=== PATIENT | male | born 1985 | race Two or more races ===

== ENCOUNTER 2018-03-13 23:35 | Emergency (ER) | payer MEDICAID ==
[~2018-03-13] VITALS: Ht 165.1 cm; Wt 72.6 kg
[2018-03-14 05:57] VITALS: BP 138/74
== END 2018-03-14 05:35 | disposition home or self-care (01) ==
LOC: ER 23:35
DX: S89.92XA Unspecified injury of left lower leg, initial encounter (principal); M25.462 Effusion, left knee; V19.9XXA Pedal cyclist (driver) (passenger) injured in unspecified traffic accident, initial encounter; Y93.89 Activity, other specified; Y92.89 Other specified places as the place of occurrence of the external cause; Y99.8 Other external cause status
CPT/HCPCS: 73562

== ENCOUNTER 2018-11-27 | Emergency (ER) | payer MEDICAID ==
[~2018-11-27] VITALS: Ht 165.1 cm; Wt 68.0 kg
[2018-11-27 02:57] VITALS: BP 118/77
[2018-11-27] MEDS ORDERED: BACLOFEN 10 MG TAB PO ONE (03:00)
[2018-11-27] MEDS ORDERED: HYDROcodone-ACET 5/325MG TAB PO ONE (03:00)
== END 2018-11-27 03:39 | disposition home or self-care (01) ==
LOC: ER 00:03
DX: S20.211A Contusion of right front wall of thorax, initial encounter (principal); W22.8XXA Striking against or struck by other objects, initial encounter; Y93.55 Activity, bike riding; Y92.488 Other paved roadways as the place of occurrence of the external cause; Y99.8 Other external cause status
CPT/HCPCS: 71111

== ENCOUNTER 2019-01-31 20:39 | Emergency (ER) | payer MEDICAID ==
[~2019-01-31] VITALS: Ht 182.9 cm; Wt 72.6 kg
[2019-01-31 21:25] VITALS: BP 108/53
[2019-02-01] MEDS ORDERED: TETANUS-DIPTH-ACEL PERTUSSIS 0.5ML SYRG IM ONE (00:45)
[2019-02-01] MEDS ORDERED: cefTRIAXone SOD 1,000 MG VL IM ONE (00:45)
[2019-02-01] MEDS ORDERED: IBUPROFEN 800 MG TAB PO ONE (00:45)
== END 2019-02-01 01:49 | disposition home or self-care (01) ==
LOC: ER 20:39
DX: S91.331A Puncture wound without foreign body, right foot, initial encounter (principal); W22.8XXA Striking against or struck by other objects, initial encounter; Y93.89 Activity, other specified; Y99.8 Other external cause status; Y92.820 Desert as the place of occurrence of the external cause
CPT/HCPCS: 73630; 90471; 90715; 96372; 99283; J0696

== ENCOUNTER 2019-06-09 03:44 | Emergency (ER) | payer SELFPAY ==
[~2019-06-09] VITALS: Ht 170.2 cm; Wt 68.9 kg
[2019-06-09 03:50] VITALS: BP 117/78
== END 2019-06-09 06:06 | disposition left against medical advice (07) ==
LOC: ER 03:49
DX: M25.562 Pain in left knee (principal); Z53.21 Procedure and treatment not carried out due to patient leaving prior to being seen by health care provider

== ENCOUNTER 2019-08-23 21:13 | Emergency (ER) | payer SELFPAY ==
[~2019-08-23] VITALS: Ht 167.6 cm; Wt 70.3 kg
[2019-08-23 21:36] VITALS: BP 121/70
== END 2019-08-24 | disposition left against medical advice (07) ==
LOC: ER 21:14
DX: R06.02 Shortness of breath (principal); Z53.21 Procedure and treatment not carried out due to patient leaving prior to being seen by health care provider

== ENCOUNTER 2020-03-28 00:09 | Emergency (ER) | payer SELFPAY ==
[~2020-03-28] VITALS: Ht 167.6 cm; Wt 72.6 kg
[2020-03-28 08:33] VITALS: BP 110/65
== END 2020-03-28 08:30 | disposition home or self-care (01) ==
LOC: EDBD 00:09 → ER 00:15
DX: S42.034A Nondisplaced fracture of lateral end of right clavicle, initial encounter for closed fracture (principal); S32.018A Other fracture of first lumbar vertebra, initial encounter for closed fracture; X58.XXXA Exposure to other specified factors, initial encounter; Y93.89 Activity, other specified; Y92.89 Other specified places as the place of occurrence of the external cause; Y99.8 Other external cause status
CPT/HCPCS: 70450; 71250; 72125; 73130; 73590; 74176

== ENCOUNTER 2020-03-31 03:05 | Emergency (ER) | payer SELFPAY ==
[~2020-03-31] VITALS: Ht 167.6 cm; Wt 68.0 kg
[2020-03-31 03:24] VITALS: BP 120/71
[2020-03-31] MEDS ORDERED: ONDANSETRON ODT 4 MG TAB PO ONE (04:30)
[2020-03-31] MEDS ORDERED: MORPHINE SULF INJ 2 MG/ML SYRINGE 1ML IM ONE (04:30)
== END 2020-03-31 05:18 | disposition home or self-care (01) ==
LOC: ER 03:11
DX: S32.009S Unspecified fracture of unspecified lumbar vertebra, sequela (principal); S42.034S Nondisplaced fracture of lateral end of right clavicle, sequela; S20.211S Contusion of right front wall of thorax, sequela; X58.XXXS Exposure to other specified factors, sequela
CPT/HCPCS: 73030; 96374; 99283; J2270; Q0162

== ENCOUNTER 2020-08-16 05:12 | Emergency (ER) | payer SELFPAY ==
[~2020-08-16] VITALS: Ht 165.1 cm; Wt 72.6 kg
[2020-08-16 05:13] VITALS: BP 106/69
== END 2020-08-16 06:00 | disposition left against medical advice (07) ==
LOC: ER 05:12
DX: R11.0 Nausea (principal); Z53.21 Procedure and treatment not carried out due to patient leaving prior to being seen by health care provider

== ENCOUNTER 2020-09-11 02:03 | Emergency (ER) | payer SELFPAY ==
[~2020-09-11] VITALS: Ht 167.6 cm; Wt 72.6 kg
[2020-09-11 02:08] VITALS: BP 114/66
== END 2020-09-11 04:20 | disposition left against medical advice (07) ==
LOC: ER 02:08
DX: R51.9 Headache, unspecified (principal); M54.2 Cervicalgia; Z53.21 Procedure and treatment not carried out due to patient leaving prior to being seen by health care provider
CPT/HCPCS: 70450; 72040

== ENCOUNTER 2020-11-15 21:28 | Emergency (ER) | payer MEDICAID ==
[~2020-11-15] VITALS: Ht 167.6 cm; Wt 68.0 kg
[2020-11-16] MEDS ORDERED: ONDANSETRON HCL 4 MG/2 ML VIAL IV ONE ×2 (01:00→03:00)
[2020-11-16] MEDS ORDERED: SODIUM CHLORIDE 0.9% 1,000 ML IV ONE (01:00)
[2020-11-16] MEDS ORDERED: MORPHINE SULFATE 4 MG/ML SYR/VIAL IV ONE ×2 (01:00→03:00)
[2020-11-16 01:20] LABS: Basophils # (auto) 0 10 ^3/uL (0-0.2); Basophils % (auto) 0.4 % (0.0-2.0); Eosinophils # (auto) 0.2 10 ^3/uL (0-0.8); Eosinophils % (auto) 1.5 % (0.0-7.0); Hematocrit 38.3 % (41.0-53.0); Hemoglobin 12.6 g/dL (13.5-17.5); Lymphocytes # (auto) 1.1 10 ^3/uL (0.4-5.4); Lymphocytes % (auto) 8.7 % (10.0-50.0); Mean Corpuscular Hemoglobin 27.9 pg (28.0-32.0); Mean Corpuscular Hgb Conc. 32.8 g/dL (32.0-36.0); Mean Corpuscular Volume 85.2 fL (80.0-100.0); Monocytes # (auto) 0.6 10 ^3/uL (0-1.3); Monocytes % (auto) 4.4 % (0.0-12.0); Neutrophils # (auto) 10.8 10 ^3/uL (1.6-8.6); Nucleated Red Blood Cells % 0.1 %; Red Cell Distribution Width 13.8 % (11.8-14.3); White Blood Cell 12.7 10^3/uL (4.4-10.8)
[2020-11-16 01:38] LABS: Albumin 3.5 g/dL (3.4-5.0); BUN/Creatinine Ratio 23.6; Calcium 8.4 mg/dL (8.5-10.1); Potassium 3.5 mmol/L (3.5-5.1)
[2020-11-16 01:47] LABS: Bilirubin, Total 0.2 mg/dL (0.2-1.0); Total Protein 6.9 g/dL (6.4-8.2)
[2020-11-16 07:45] VITALS: BP 108/70
== END 2020-11-16 08:13 | disposition home or self-care (01) ==
LOC: ER 21:28
DX: S02.85XA Fracture of orbit, unspecified, initial encounter for closed fracture (principal); S02.40DA Maxillary fracture, left side, initial encounter for closed fracture; R51.9 Headache, unspecified; Z20.822 Contact with and (suspected) exposure to COVID-19; Y04.8XXA Assault by other bodily force, initial encounter; Y93.89 Activity, other specified; Y92.89 Other specified places as the place of occurrence of the external cause; Y99.8 Other external cause status
CPT/HCPCS: 36415; 70450; 70486; 72125; 80053; 80320; 85025; 86850; 86900; 86901; 87426; 96361; 96374; 96375; 96376; 99285; J2270; J2405

== ENCOUNTER 2020-12-02 03:19 | Emergency (ER) | payer MEDICAID ==
[~2020-12-02] VITALS: Ht 165.1 cm; Wt 68.0 kg
[2020-12-02 04:47] VITALS: BP 126/76
[2020-12-02] MEDS ORDERED: KETOROLAC TROMETH 60MG/2ML VIAL IM ONE (05:00)
== END 2020-12-02 04:28 | disposition home or self-care (01) ==
LOC: ER 03:19
DX: S02.40DD Maxillary fracture, left side, subsequent encounter for fracture with routine healing (principal); X58.XXXD Exposure to other specified factors, subsequent encounter
CPT/HCPCS: 96372; 99283; J1885

== ENCOUNTER 2021-02-17 03:54 | Emergency (ER) | payer MEDICAID, OTHER ==
[2021-02-17 04:34] VITALS: BP 129/73
== END 2021-02-17 04:48 | disposition home or self-care (01) ==
LOC: ER 03:54
DX: R19.7 Diarrhea, unspecified (principal)

== ENCOUNTER 2021-04-21 22:00 | Emergency (ER) | payer OTHER ==
[~2021-04-21] VITALS: Ht 167.6 cm; Wt 68.0 kg
[2021-04-21] MEDS ORDERED: ONDANSETRON ODT 4 MG TAB PO ONE (23:00)
[2021-04-21] MEDS ORDERED: PANTOPRAZOLE 40 MG TAB PO ONE (23:00)
[2021-04-22] MEDS ORDERED: diphenhdrAMINE HCL 25 MG CAP PO ONE (01:30)
[2021-04-22 03:11] VITALS: BP 105/65
== END 2021-04-22 04:59 | disposition left against medical advice (07) ==
LOC: ER 22:01
DX: K21.9 Gastro-esophageal reflux disease without esophagitis (principal); Z20.822 Contact with and (suspected) exposure to COVID-19
CPT/HCPCS: 36415; 87426; 99284; Q0162

== ENCOUNTER 2021-04-27 20:08 | Emergency (ER) | payer OTHER ==
[~2021-04-27] VITALS: Ht 165.1 cm; Wt 69.9 kg
[2021-04-27 20:12] VITALS: BP 127/73
== END 2021-04-28 03:44 | disposition left against medical advice (07) ==
LOC: ER 20:08
DX: R05.9 Cough, unspecified (principal); Z53.21 Procedure and treatment not carried out due to patient leaving prior to being seen by health care provider
CPT/HCPCS: 71045

== ENCOUNTER 2021-06-01 18:39 | Emergency (ER) | payer OTHER ==
[~2021-06-01] VITALS: Ht 165.1 cm; Wt 70.3 kg
[2021-06-01] MEDS ORDERED: KETOROLAC TROMETH 30 MG/ML 1ML VIAL IM ONE (19:45)
[2021-06-01] MEDS ORDERED: ACETAMINOPHEN 500 MG TAB PO ONE (19:45)
[2021-06-01 19:57] VITALS: BP 130/78
== END 2021-06-01 21:05 | disposition home or self-care (01) ==
LOC: ER 18:39
DX: M25.561 Pain in right knee (principal)
CPT/HCPCS: 96372; 99283; J1885

== ENCOUNTER 2021-07-05 03:08 | Emergency (ER) | payer OTHER ==
[~2021-07-05] VITALS: Ht 167.6 cm; Wt 68.5 kg
[2021-07-05] MEDS ORDERED: AMOXICILLIN/CLAVUL 875 MG TAB PO ONE (04:30)
[2021-07-05 04:41] VITALS: BP 114/69
[2021-07-05] MEDS ORDERED: AZIT250T9 PO (04:53)
[2021-07-05] MEDS ORDERED: AZITHROMYCIN 250 MG TAB PO ONE (05:00)
== END 2021-07-05 05:05 | disposition home or self-care (01) ==
LOC: ER 03:08
DX: J01.90 Acute sinusitis, unspecified (principal)

== ENCOUNTER 2021-11-20 20:33 | Emergency (ER) | payer OTHER ==
[~2021-11-20] VITALS: Ht 167.6 cm; Wt 68.0 kg
[~2021-11-20 20:33] MED LIST: AZIT250T9 PO
[2021-11-20 20:49] VITALS: BP 107/66
== END 2021-11-20 23:33 | disposition home or self-care (01) ==
LOC: ER 20:33
DX: M25.512 Pain in left shoulder (principal); F17.210 Nicotine dependence, cigarettes, uncomplicated; Z90.89 Acquired absence of other organs; Z79.2 Long term (current) use of antibiotics
CPT/HCPCS: 73030

== ENCOUNTER → 2022-09-01 03:38 | Emergency (ER) | payer OTHER | END | disposition left against medical advice (07) | LOC: ER 03:38 | DX: R10.9 Unspecified abdominal pain (principal); Z53.21 Procedure and treatment not carried out due to patient leaving prior to being seen by health care provider ==

== ENCOUNTER 2022-10-05 21:11 | Emergency (ER) | payer OTHER ==
[~2022-10-05] VITALS: Ht 167.6 cm; Wt 67.2 kg
[~2022-10-05 21:11] MED LIST changes: +AZIT-43 PO; -AZIT250T9 PO
[2022-10-05 23:14] VITALS: BP 104/61
[2022-10-06] MEDS ORDERED: IBUPROFEN 800 MG TAB PO ONE
== END 2022-10-06 00:25 | disposition home or self-care (01) ==
LOC: ER 21:11
DX: S22.42XA Multiple fractures of ribs, left side, initial encounter for closed fracture (principal); Y04.2XXA Assault by strike against or bumped into by another person, initial encounter; Y93.89 Activity, other specified; Y92.89 Other specified places as the place of occurrence of the external cause; Y99.8 Other external cause status
CPT/HCPCS: 71101

== ENCOUNTER 2024-04-26 04:58 | Emergency (ER) | payer MEDICAID, OTHER ==
[~2024-04-26] VITALS: Ht 165.1 cm; Wt 67.1 kg
--- NOTE | 2024-04-26 05:18 | ED.PDOC ---
History of Present Illness HPI Comments 38-year-old male presents with a chief complaint of pain to his inguinal hernia x 1 hour. Patient states that he was already aware that he had a right inguinal hernia, but states that roughly an hour ago he feels like he strained it and the pain increased. Patient has protruding inguinal hernia on the right side. Patient reports that it is painful to walk. Time Seen by MD: 05:12 Primary Care Provider: UNKNOWN Reviewed Notes: Medications, Allergies Allergies: Coded Allergies: NO KNOWN ALLERGIES (Unverified , 11/27/18) Home Meds Active Scripts Azithromycin (Azithromycin) 250 Mg Tab, 250 MG PO DAILY, #4 TAB Prov:BRYAN ALVARADO MD 07/05/21 Information Source: Patient Mode of Arrival: Ambulatory Severity: Moderate Timing: Hours Duration: Since onset Prehospital treatment: None Past Medical History PAST MEDICAL HISTORY: Denies Surgical History: Tonsillectomy Family History Family History: Reviewed,noncontributory to illness Social History Smoker: Cigarettes Alcohol: Occasionally Drugs: Other Lives In: Home Constitutional: denies: chills, diaphoresis, fatigue, fever, malaise, sweats, weakness, others EENTM: denies: blurred vision, double vision, ear bleeding, ear discharge, ear drainage, ear pain, ear ringing, eye pain, eye redness, hearing loss, mouth pain, mouth swelling, nasal discharge, nose bleeding, nose congestion, nose pain, photophobia, tearing, throat pain, throat swelling, voice changes, others Respiratory: denies: cough, hemoptysis, orthopnea, SOB at rest, shortness of breath, SOB with excertion, stridor, wheezing, others Cardiovascular: denies: chest pain, dizzy spells, diaphoresis, Dyspnea on exertion, edema, irregular heart beat, left arm pain, lightheadedness, palpit ations, PND, syncope, others Gastrointestinal: denies: abdomen distended, abdominal pain, blood streaked b owels, constipated, diarrhea, dysphagia, difficulty swallowing, hematemesis, melena, nausea, poor appetite, poor fluid intake, rectal bleeding, rectal pain, vomiting, others Genitourinary: reports: others (INGUINAL HERNIA PAIN); denies: burning, dysuria, flank pain, frequency, hematuria, incontinence, penile discharge, penile sore, pain, testicle pain, testicle swelling, urgency Neurological: denies: dizziness, fainting, headache, left sided numbness, left sided weakness, numbness, paresthesia, pre-existing deficit, right sided numbness, right sided weakness, seizure, speech problems, tingling, tremors, weakness, others Musculoskeletal: denies: back pain, gout, joint pain, joint swelling, muscle pain, muscle stiffness, neck pain, others Integumetry: denies: bruises, change in color, change in hair/nails, dryness, laceration, lesions, lumps, rash, wounds, others Allergic/Immunocompromised: denies: Difficulty Healing, Frequent Infections, Hives, Itching, others Hematologic/Lymphatic: denies: anemia, blood clots, easy bleeding, easy bruising, swollen glands, others Endocrine: denies: excessive hunger, excessive sweating, excessive thirst, excessive urination, flushing, intolerance to cold, intolerance to heat, unexpl ained weight gain, unexplained weight loss, others Psychiatric: denies: anxiety, bipolar disorder, depression, hopeless, panic disorder, schizophrenia, sleepless, suicidal, others All Other Systems: Reviewed and Negative Physical Exam General Appearance: No Apparent Distress, Normal HEENT: Normal ENT Inspection, Pharynx Normal, TMs Normal Neck: Full Range of Motion, Non-Tender, Normal, Normal Inspection Respiratory: Chest Non-Tender, Lungs Clear, No Accessory Muscle Use, No Respiratory Distress, Normal Breath Sounds Cardiovascular: No Edema, No JVD, No Murmur, No Gallop, Normal Peripheral Pulses, Regular Rate/Rhythm Breast Exam: Deferred Gastrointestinal: No Organomegaly, Non Tender, No Pulsatile Mass, Normal Bowel Sounds, Soft Genitalia: Deferred Pelvic: Deferred Rectal: Deferred Extremities: No calf tenderness, Normal capillary refill, Normal inspection, Normal range of motion, Non-tender, No pedal edema Musculoskeletal : Apperance: Normal Neurologic: Alert, compensation coordinator II-XII nml as Tested, No Motor Deficits, Normal Affect, Normal Mood, No Sensory Deficits Cerebellar Function: Normal Reflexes: Normal Skin: Dry, Normal Color, Warm Lymphatic: No Adenopathy Was a procedure done? Was a procedure done?: No Differential Dx Considerations may include: Incarcerated inguinal hernia, inguinal hernia pain X-Ray, Labs, Meds, VS Vital Signs Date Time Temp Pulse Resp B/P (MAP) Pulse Ox O2 Delivery O2 Flow Rate FiO2 04/26/24 05:10 97.6 81 16 118/73 (88) 97 Time of 1ST Reevaluation: 05:42 Reevaluation 1ST: Unchanged Patient Education/Counseling: Diagnosis, Treatment, Prognosis Family Education/Counseling: No Family Present Departure 1 Departure Time of Disposition: 06:27 (Patient's hernia is not incarcerated. Patient has inflamed fat in the hernia. We will discharge patient with outpatient surgical follow up) Impression: Primary Impression: Inguinal hernia Qualified Codes: K40.91 - Unilateral inguinal hernia, without obstruction or gangrene, recurrent Disposition: 01 HOME / SELF CARE / HOMELESS Condition: Stable Referrals: CARRIE PAULINO MD Additional Instructions: You have a hernia with inflamed fat in it. This can be painful but is not dangerous. You need to follow up with a general surgeon to discuss treatment options. You were referred to a general surgeon. Please call for an appointment. For pain you can take the followinam: Ibuprofen 400mg with food Noon: Acetaminophen 1000mg 4pm: Ibuprofen 400mg with food 8pm: Acetaminophen 1000mg You should follow up with your regular doctor within one week to ensure you are doing better. If your symptoms worsen or you have any other concerns then please return to the ER. Discharged With: Self Critical Care Note Critical Care Time?: No Stability Stability form required: No I personally scribed for DIANE ARRIAGA MD ([email or web address]) on 04/26/24 at 05:18. Electronically submitted by Manjeet Inman ([email or web address]). DIANE ARRIAGA MD Apr 26, 2024 05:18
--- NOTE | 2024-04-26 06:18 | DVH ---
Exam: CT CT AB PEL WITH IV CON ONLY History: rlq pain concerning for incarcerated hernia Comparison Study: None available at time of dictation. Technique: Multidetector spiral CT of the abdomen was performed from lung bases to pubic symphysis. Axial imaging was performed with intravenous contrast following the uneventful administration of 100 ml Omnipaque 300. Coronal and sagittal multiplanar reformats were obtained from the axial data set b y the technologist. Radiation Dose : 1. Abdomen/Pelvis: CTDIvol 6.61 mGy, DLP 325.14 mGy*cm. Findings: Lung Bases: Lung bases are clear. Visualized portions of the heart and pericardium are unremarkable. Liver: The liver is normal in size. No focal lesions. Gallbladder and Biliary Tree: The gallbladder is unremarkable No intrahepatic or extrahepatic bilia ry ductal dilatation. Spleen: Unremarkable Pancreas: The pancreas enhances normally and there are no focal lesions. The main pancreatic duct i s not dilated Adrenal Glands: Unremarkable Kidneys: Kidneys enhance symmetrically. No calculi or hydronephrosis. GI tract: The stomach is grossly normal in appearance.. No evidence of small bowel wall thickening or abnormal dilatation to suggest bowel obstruction. The colon is unremarkable. The appendix is visuali zed and is normal. Peritoneum/mesentery/retroperitoneum. No evidence of free intraperitoneal air. No ascites. No evidenc e of suspicious lymphadenopathy. Abdominal Wall: Unremarkable. Vasculature: Abdominal aorta and main branches are unremarkable. Normal vascular enhancement. Urinary Bladder: Grossly unremarkable for degree of distention. Pelvic Organs: Unremarkable Musculoskeletal: No aggressive focal bony lesions, acute fractures or dislocation. Soft tissues: Fat containing right inguinal hernia. There is infiltration of the fat. IMPRESSION: 1. Fat containing right inguinal hernia with infiltration of the fat which may reflect inflammation. 2. Otherwise no acute abnormality in the abdomen or pelvis.
[2024-04-26] MEDS: IOHEXOL 300 MG/ML 100ML BOTTLE IJ ONE (06:23)
[2024-04-26 06:51] VITALS: TEMP 97.4
[2024-04-26 06:54] VITALS: RESP 18; O2SAT 98
[2024-04-26 06:57] VITALS: BP 100/57; PULSE 84; RESP 18
[2024-04-26] MEDS: ONDANSETRON HCL 4 MG/2 ML VIAL IV ONE (06:57)
[2024-04-26] MEDS: MORPHINE SULFATE 4 MG/ML SYR/VIAL IV ONE (06:57)
[2024-04-26] MEDS: SODIUM CHLORIDE 0.9% 1,000 ML IV ONE (06:57)
== END 2024-04-26 07:28 | disposition home or self-care (01) ==
LOC: ER 04:58
DX: K40.90 Unilateral inguinal hernia, without obstruction or gangrene, not specified as recurrent (principal); F17.210 Nicotine dependence, cigarettes, uncomplicated; Z98.890 Other specified postprocedural states
CPT/HCPCS: 74177; 96374; 96375; 99285; J2270; J2405; J7030; Q9967

== ENCOUNTER 2025-05-02 17:04 | Emergency (ER) | payer MEDICAID ==
[~2025-05-02] VITALS: Ht 167.6 cm; Wt 75.8 kg
[2025-05-02 17:06] VITALS: BP 114/66; PULSE 84; RESP 18; TEMP 99.9; O2SAT 96
--- NOTE | 2025-05-02 17:36 | ED.PDOC ---
History of Present Illness HPI Comments 39 year old male presents to the ED with a chief complaint of headache onset 2 days. Patient states he has been experiencing headache, states he has "lumps" all over his head. He is also experiencing sore throat, fever, nasal congestion, cough, facial pain for the past 2 days. He has taken Tylenol with no relief of symptoms. Denies nausea, vomiting, diarrhea, dizziness, chest pain, shortness of breath, dysuria, hematuria. No other symptoms or modifying factors present at this time. Chief Complaint: Headache Time Seen by MD: 17:30 Primary Care Provider: UNKNOWN Reviewed Notes: Medications, Allergies Allergies: Coded Allergies: NO KNOWN ALLERGIES (Unverified , 11/27/18) Home Meds Active Scripts Azithromycin (Azithromycin) 250 Mg Tab, 250 MG PO DAILY, #4 TAB Prov:BRYAN ALVARADO MD 07/05/21 Information Source: Patient Mode of Arrival: Ambulatory Severity: Moderate Timing: Days Duration: Since onset Prehospital treatment: None Past Medical History PAST MEDICAL HISTORY: Denies Surgical History: Tonsillectomy Family History Family History: Reviewed,noncontributory to illness Social History Smoker: Cigarettes Alcohol: Occasionally Drugs: Other Lives In: Home Constitutional: reports: fever; denies: chills, diaphoresis, fatigue, malaise, sweats, weakness, others EENTM: reports: nasal discharge, throat pain; denies: blurred vision, double vision, ear bleeding, ear discharge, ear drainage, ear pain, ear ringing, eye pain, eye redness, hearing loss, mouth pain, mouth swelling, nose bleeding, nose congestion, nose pain, photophobia, tearing, throat swelling, voice changes, others Respiratory: reports: cough; denies: hemoptysis, orthopnea, SOB at rest, shortness of breath, SOB with excertion, stridor, wheezing, others Cardiovascular: denies: chest pain, dizzy spells, diaphoresis, Dyspnea on exertion, edema, irregular heart beat, left arm pain, lightheadedness, palpitations, PND, syncope, others Gastrointestinal: denies: abdomen distended, abdominal pain, blood streaked bowels, constipated, diarrhea, dysphagia, difficulty swallowing, hematemesis, melena, nausea, poor appetite, poor fluid intake, rectal bleeding, rectal pain, vomiting, others Genitourinary: denies: burning, dysuria, flank pain, frequency, hematuria, incontinence, penile discharge, penile sore, pain, testicle pain, testicle swelling, urgency, others Neurological: reports: headache; denies: dizziness, fainting, left sided numbness, left sided weakness, numbness, paresthesia, pre-existing deficit, right sided numbness, right sided weakness, seizure, speech problems, tingling, tremors, weakness, others Musculoskeletal: denies: back pain, gout, joint pain, joint swelling, muscle pain, muscle stiffness, neck pain, others Integumetry: denies: bruises, change in color, change in hair/nails, dryness, laceration, lesions, lumps, rash, wounds, others Allergic/Immunocompromised: denies: Difficulty Healing, Frequent Infections, Hives, Itching, others Hematologic/Lymphatic: denies: anemia, blood clots, easy bleeding, easy bruising, swollen glands, others Endocrine: denies: excessive hunger, excessive sweating, excessive thirst, excessive urination, flushing, intolerance to cold, intolerance to heat, unexplained weight gain, unexplained weight loss, others Psychiatric: denies: anxiety, bipolar disorder, depression, hopeless, panic disorder, schizophrenia, sleepless, suicidal, others All Other Systems: Reviewed and Negative Physical Exam General Appearance: No Apparent Distress, Normal HEENT: Normal ENT Inspection, Pharynx Normal, TMs Normal Neck: Full Range of Motion, Non-Tender, Normal, Normal Inspection Respiratory: Chest Non-Tender, Lungs Clear, No Accessory Muscle Use, No Respiratory Distress, Normal Breath Sounds Cardiovascular: No Edema, No JVD, No Murmur, No Gallop, Normal Peripheral Pulses, Regular Rate/Rhythm Breast Exam: Deferred Gastrointestinal: No Organomegaly, Non Tender, No Pulsatile Mass, Normal Bowel Sounds, Soft Genitalia: Deferred Pelvic: Deferred Rectal: Deferred Extremities: No calf tenderness, Normal capillary refill, Normal inspection, Normal range of motion, Non-tender, No pedal edema Musculoskeletal : Apperance: Normal Neurologic: Alert, lugger II-XII nml as Tested, No Motor Deficits, Normal Affect, Normal Mood, No Sensory Deficits Cerebellar Function: Normal Reflexes: Normal Skin: Dry, Normal Color, Warm Lymphatic: No Adenopathy Was a procedure done? Was a procedure done?: No Differential Dx Considerations may include: URI, influenza, COVID, strep throat, pharyngitis, pneumonia X-Ray, Labs, Meds, VS Vital Signs Date Time Temp Pulse Resp B/P (MAP) Pulse Ox O2 Delivery O2 Flow Rate FiO2 05/02/25 17:06 99.9 84 18 114/66 96 99.9 X-Ray, Labs, Meds, VS Comment Imaging: X-rays and CT scans were reviewed and interpreted by this provider, im aging shows no fractures and no pathological disease. Pending radiology review. Laboratory: Labs reviewed and interpreted by this provider. No significant abnormalities noted. Patient has prior medical visits reviewed. Med reconciliation performed Vital signs reviewed Time of 1ST Reevaluation: 18:00 Reevaluation 1ST: Unchanged Patient Education/Counseling: Diagnosis, Treatment, Prognosis, Need For Follow Up (Follow up with PCP next available appointment.) Family Education/Counseling: No Family Present SEPSIS Sepsis Screen Date sepsis recognized/suspect: May 02, 2025 Time Sepsis recognized/suspect: 1705 Recent Procedure: No On Antibiotic Therapy: No Respiratory Rate >20: No Heart Rate >90: No Temp<36 C (96.8 F) or >38.3 C: No SBP <90 or MAP <65 mmHG: No New Acute Mental Status Change: No Is the patient on CPAP, BIPAP,: No Vital Signs Date Time Temp Pulse Resp B/P (MAP) Pulse Ox O2 Delivery O2 Flow Rate FiO2 05/02/25 17:06 99.9 84 18 114/66 96 99.9 Departure 1 Departure Time of Disposition: 17:41 Impression: Primary Impression: Acute sinusitis Qualified Codes: J01.10 - Acute frontal sinusitis, unspecified Disposition: 01 HOME / SELF CARE / HOMELESS Condition: Stable e-Prescriptions Montelukast Sodium (Singulair) 10 Mg Tab 10 MG PO DAILY, #30 TAB Prov: CHARLES HERNANDES DRIER TENDER NAPHTHALENE 05/02/25 Ibuprofen Micronized (Ibuprofen) 800 Mg Tab 800 MG PO TID PRN, #40 TAB Prov: CHARLES HERNANDES DRIER TENDER NAPHTHALENE 05/02/25 Amoxicillin & Pot Clavulanate (AUGMENTIN TABLET) 875 Mg Tb 875 MG PO BID for 7 Days, #14 TAB Prov: CHARLES HERNANDES DRIER TENDER NAPHTHALENE 05/02/25 Discharged With: Self Critical Care Note Critical Care Time?: No Stability Stability form required: No Heart Score Heart Score: Heart Score Response (Comments) Value History N/A 0 EKG N/A 0 Age N/A 0 Risk Factors N/A 0 Troponin N/A 0 Total 0 I personally scribed for CHARLES HERNANDES ([email or web address]) on 05/02/25 at 17:36. Electronically submitted by Diana Yee ([email or web address]). CHARLES HERNANDES May 02, 2025 17:36
[2025-05-02] MEDS ORDERED: AUG875T PO (17:43)
[2025-05-02] MEDS ORDERED: MONT10TA23 PO (17:43)
[2025-05-02] MEDS ORDERED: IBUP-1455 PO (17:43)
== END 2025-05-02 18:51 | disposition home or self-care (01) ==
LOC: ER 17:04
DX: J01.90 Acute sinusitis, unspecified (principal); F17.210 Nicotine dependence, cigarettes, uncomplicated; Z79.899 Other long term (current) drug therapy